=== PATIENT | female | born 1985 | race African-American/Black ===

== ENCOUNTER 2021-08-10 09:07 | Outpatient (CLI) | payer OTHER | END 2021-08-10 09:08 | disposition home or self-care (01) | LOC: CSHMAMMO 09:07 | PROVIDERS: ATTEND Family Medicine | DX: N64.4 Mastodynia (principal); N63.11 Unspecified lump in the right breast, upper outer quadrant | CPT/HCPCS: 77066; G0279 ==

== ENCOUNTER 2022-05-24 09:18 | Outpatient (CLI) | payer OTHER | END 2022-05-24 09:19 | disposition home or self-care (01) | LOC: CSHMAMMO 09:18 | PROVIDERS: ATTEND Nurse Practitioner Family | DX: N63.14 Unspecified lump in the right breast, lower inner quadrant (principal) | CPT/HCPCS: G0279 ==